=== PATIENT | female | born 1990 | race Caucasian/White ===

== ENCOUNTER 2017-03-14 12:07 | Emergency (ER) | payer OTHER ==
[2017-03-14 12:59] VITALS: BP 101/53
--- NOTE | 2017-03-14 14:16 | UC ---
Skin Complaint HPI - HPI Summary HPI Summary: pt presents with c/o sudden onset of pruritic rash that is scattered on torso and lower extremities. Pt was recently an inpatient for two days at [facility] for dehydration and UTI. Pt began cipro yesterday and woke with scattered urticaria on torso and lower extremities. Pty took 25mg of benadryl yesterday and reports improvement of rash. Denies insect bite or exposure to any potential contact dermatitis. - History of Current Complaint Chief Complaint: UCRash Stated Complaint: SKIN COMPLAINT Hx Obtained From: Patient Hx Last Menstrual Period: 2 wks ago ?: No Onset/Duration: Sudden Onset, Lasting Hours - 24 Skin Exposure Onset/Duration: Days Ago - 1 Timing: Constant Onset Severity: Moderate Current Severity: Mild Location: Diffuse, Foot (Right), Foot (Left), Other - bilateral ankles, and torso Character: Pruritus, Redness - circular rash with erythematous ring, raised red dot in center, with central clearing., Raised Aggravating: Nothing Alleviating: Antihistamines Associated Signs & Symptoms: Positive: Rash Related History: Recent change in medication - Allergy/Home Medications Allergies/Adverse Reactions: Allergies Allergy/AdvReac Type Severity Reaction Status Date / Time Sulfa Antibiotics Allergy Rash Verified 03/14/17 12:53 Home Medications: Home Medications FLUoxetine CAP* [Prozac CAP*] 10 mg PO DAILY 03/14/17 [History Confirmed ] OLANzapine TAB* [Zyprexa 5 MG TAB*] 5 mg PO DAILY 03/14/17 [History Confirmed ] Review of Systems Constitutional: Negative Skin: Rash Eyes: Negative ENT: Negative Respiratory: Negative Cardiovascular: Negative Gastrointestinal: Negative Genitourinary: Dysuria, Frequency, Urgency Motor: Negative Neurovascular: Negative Musculoskeletal: Negative Neurological: Negative Psychological: Negative All Other Systems Reviewed And Are Negative: Yes PMH/Surg Hx/FS Hx/Imm Hx Previously Healthy: Yes - Surgical History Surgical History: Yes Surgery Procedure, Year, and Place: appy 08/2016, tonsillectomy - Family History Known Family History: Positive: Other - positive [facility] for URI - Social History Lives: With Family Alcohol Use: None Substance Use Type: None Smoking Status (MU): Light Every Day Tobacco Smoker Type: Cigarettes Amount Used/How Often: 5-6 cigarettes daily Physical Exam Triage Information Reviewed: Yes Appearance: Well-Appearing Vital Signs: Initial Vital Signs Temp 98.8 F 03/14/17 12:55 Pulse 67 03/14/17 12:55 Resp 16 03/14/17 12:55 BP 101/53 03/14/17 12:55 Pulse Ox 99 03/14/17 12:55 Eye Exam: Normal Respiratory Exam: Normal Respiratory: Positive: No respiratory distress Musculoskeletal Exam: Normal Neurological Exam: Normal Psychological Exam: Normal Skin Exam: Other - scattered rash on torso and lower extremities, circular with central clearing and center raised erythematous pinprick dot, Course/Dx - Differential Diagnoses - Skin Complaint Differential Diagnoses: Allergic Reaction, Tick Born Illness, Urticaria - Diagnoses Provider Diagnoses: drug reaction. uriticaria. consideration for insect bites Discharge - Discharge Plan Condition: Stable Disposition: HOME Prescriptions: Cephalexin CAP* [Keflex 500 CAP*] 500 mg PO Q12H #14 cap Phenazopyridine TAB* [Pyridium 100 mg TAB*] 100 mg PO TID #6 tab Patient Education Materials: Acute Rash (ED), Adverse Drug Reaction (ED) Referrals: Richard Mancia [Primary Care Provider] - As Soon As Possible
== END 2017-03-14 14:24 | disposition home or self-care (01) ==
LOC: UCCORT 12:07
DX: L50.0 Allergic urticaria (principal); T36.8X5A Adverse effect of other systemic antibiotics, initial encounter
CPT/HCPCS: 99202; G0463